=== PATIENT | female | born 1930 | race Caucasian/White ===

== ENCOUNTER → 2017-04-06 | Outpatient (CLI) | payer OTHER ==
[~2017-04-06] MED LIST: ASPIRIN ADULT L81 M1 PO; DILTIAZEM ER240 MG PO; FOSINOPRIL20 MG PO; HYDR25T PO; ISOSORBIDE30 MG PO; JANUVIA100 MG PO; JANUVIA50 MG PO; KLOR-CON M1010 MEQ PO; LISINOPRIL20 MG PO; LUMIGAN50 DRP OPH; METFORMIN500 MG PO; Meclizine25 MG PO; OCUVITE1 TA1 PO; OSCAL,OYSTER S500 MG PO; PRAVASTATIN SOD40 MG PO; PROPRANOLOL HC160 M1 PO; VITAMIN D50000 I3 PO
[2017-04-06 09:26] LABS: BILIRUBIN, TOTAL 0.3 mg/dl (0.2-1.0); BUN 19 mg/dl (7-24); CARBON DIOXIDE 28 mmol/L (21-32); CHLORIDE 104 mmol/L (98-107); CHOLESTEROL 121 mg/dL (<200); EST GLOM FILT AFRICAN AMERICAN > 60 ml/min; GLUCOSE 114 mg/dL (65-99); POTASSIUM 3.5 mmol/L (3.5-5.1); SGOT/AST 17 IU/L (3-35); SGPT/ALT 21 U/L (12-78); SODIUM 138 mmol/L (136-145); TOTAL PROTEIN 7.6 gm/dL (6.4-8.2); TRIGLYCERIDES 125 mg/dl (<150); VLDL CHOLESTEROL 25 mg/dL (6-40)
[2017-04-06 09:27] LABS: ALKALINE PHOSPHATASE 108 U/L (45-117); HDL CHOLESTEROL 51 mg/dl (40-60); LDL CHOLESTEROL 45 mg/dL (9-159)
== END | disposition home or self-care (01) ==
LOC: LAB 08:17
PROVIDERS: Internal Medicine Endocrinology, Diabetes & Metabolism
DX: E11.9 Type 2 diabetes mellitus without complications (principal); E78.2 Mixed hyperlipidemia; E83.52 Hypercalcemia; E55.9 Vitamin D deficiency, unspecified

== ENCOUNTER → 2018-01-19 | Outpatient (CLI) | payer OTHER ==
[2018-01-19 09:00] LABS: HEMATOCRIT 46.9 % (37.0-47.0); MEAN CELL VOLUME 89.5 fl (81.0-99.0); MEAN CORPUSCULAR HGB 28.6 pg (27.0-31.0); MEAN PLATELET VOLUME 11.4 fl (9.6-12.3); RED BLOOD COUNT 5.24 10*6/uL (4.10-5.10); RED CELL DISTRI WIDTH 14.1 % (0-14.5); WHITE BLOOD COUNT 7.1 10*3/uL (4.8-10.8)
[2018-01-19 09:28] LABS: ALBUMIN 4.2 gm/dl (3.1-4.5); BUN 18 mg/dl (7-24); CHLORIDE 104 mmol/L (98-107); CHOLESTEROL 126 mg/dL (<200); POTASSIUM 3.6 mmol/L (3.5-5.1); SGOT/AST 16 IU/L (3-35); SGPT/ALT 21 U/L (12-78); SODIUM 142 mmol/L (136-145); TOTAL PROTEIN 7.5 gm/dL (6.4-8.2); TRIGLYCERIDES 90 mg/dl (<150); VLDL CHOLESTEROL 18 mg/dL (6-40)
[2018-01-19 09:38] LABS: ALKALINE PHOSPHATASE 124 U/L (45-117); HDL CHOLESTEROL 51 mg/dl (40-60); LDL CHOLESTEROL 57 mg/dL (9-159)
== END | disposition home or self-care (01) ==
LOC: LAB 08:24
PROVIDERS: Internal Medicine Endocrinology, Diabetes & Metabolism
DX: E11.9 Type 2 diabetes mellitus without complications (principal); E78.00 Pure hypercholesterolemia, unspecified; E55.9 Vitamin D deficiency, unspecified; I10 Essential (primary) hypertension; E78.2 Mixed hyperlipidemia